=== PATIENT | male | born 1985 | race Caucasian/White ===

== ENCOUNTER 2017-03-04 12:43 | Emergency (ER) | payer MEDICARE, OTHER ==
--- NOTE | ~2017-03-04 | US115 ---
[facility] A Service of [facility] RADIOLOGY TEXT RESULTS PATIENT: LOUISE LOZOYA LOCATION: CFTX : 87 UNIT #: [id number] AGE: [address]: Ayesha Michaels APRN SEX: M ORDER DR: [id number] [facility] [address] [place], [place] [address] [id number] MR#: [id number] Acc #: [id number] NAME: LOUISE LOZOYA : 1985 SEX: M STUDY DATE/TIME: 03/04/2017 14:01 UNIT: CFTX ROOM: STUDY DESCRIPTION: US Scrotum and Contents Attending Physician: Ayesha Michaels A.P.R.N. Ordering Physician: Ed Josh Donis M.D. Primary Care Physician: Primary Care Physician No MEDICAL IMAGING REPORT This report is preliminary unless electronic signature is present EXAM Testicular ultrasound HISTORY Testicular pain and swelling for 3 months. FINDINGS Ultrasound examination of the scrotum testes was performed with molina-scale and Doppler. There is a lobulated heterogeneous, primarily hypoechoic mass occupying nearly the entire right testicle with associated moderate right testicular enlargement. There is preservation of blood flow to the right testicle. 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 Urologic consultation is recommended. The left testicle is normal. Normal blood flow to the left testicle. No epididymal mass or enlargement. IMPRESSION 1. Lobulated heterogeneous, primarily hypoechoic mass occupying nearly the entire right testicle with associated moderate right testicular enlargement. 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 Urologic consultation is recommended. 2. Blood flow is noted in both testes. 3. The left testicle is normal. 4. Small bilateral hydroceles. Dictated by... Carlos Zepeda M.D. THIS IS AN ELECTRONICALLY VERIFIED REPORT [facility] A Service of [facility] RADIOLOGY TEXT RESULTS PATIENT: LOUISE LOZOYA LOCATION: CFTX : [birth year] UNIT #: [id number] AGE: [address]: Ayesha Michaels APRN SEX: M ORDER DR: Carlos Zepeda M.D. at 03/04/2017 11:49 PM DFL/to TD: 03/04/2017 16:17 JOB #: [id number] MEDICAL IMAGING REPORT Page 1 of 1 COPY
[~2017-03-04 12:43] MED LIST: ACYCLOVIR400 MG PO; AFRIN3 ML; ALBUTEROL17 G1 IH; AMOXICILLIN; ATARAX PO; AUGMENTIN PO; BROMFED DM COU118 ML PO; FLEXERIL10 M1 PO; IBUPROFEN PO; NO MEDICATIONS; PENICILLIN V P500 MG PO; PERMETHRIN60 GM TP; TESSALON200 MG PO; VICODIN 5/1 TAB 5/50 PO; VOLTAREN75 MG PO; ZITHROMAX1 G/PKT PO
[2017-03-04 14:51] LABS: URINE SOURCE CLEAN CATCH
[2017-03-04 14:57] LABS: URINE APPEARANCE CLEAR; URINE BILIRUBIN NEG (NEG); URINE BLOOD NEG (NEG); URINE COLOR YELLOW; URINE GLUCOSE NEG (NEG); URINE KETONE NEG (NEG); URINE LEUKOCYTE ESTERASE NEG (NEG); URINE NITRATE NEG (NEG); URINE PH 7.5 (5-8); URINE PROTEIN NEG (NEG)
[2017-03-04 15:19] LABS: URINE TRICHOMONAS NEGATIVE
[2017-03-04 15:20] LABS: CULTURE INDICATED? NO
[2017-03-07 02:38] LABS: CHLAMYDIA TRACH Not Detected (Not Detected); N GONOR Not Detected (Not Detected)
[2017-03-13] MEDS ORDERED: PERCOCET 5/321 UDTAB PO (14:10)
== END 2017-03-04 15:09 | disposition home or self-care (01) ==
LOC: CFTX 12:43 → CED 12:43 → CFTX 13:23
PROVIDERS: Nurse Practitioner
DX: N50.89 Other specified disorders of the male genital organs (principal); I10 Essential (primary) hypertension; F17.210 Nicotine dependence, cigarettes, uncomplicated
CPT/HCPCS: 76870; 81003; 87491; 87591; 93976; 99284

== ENCOUNTER → 2017-03-15 | Day surgery (SDC) | payer MEDICARE, OTHER ==
[~2017-03-15] MED LIST changes: +PERCOCET 5/321 UDTAB PO
--- NOTE | ~2017-03-15 | OR ---
Unit #: [id number] #: [id number] Patient: LOUISE LOZOYA [id number] [facility]. [place], [place] [address] [id number] MR#: [id number] NAME: LOUISE LOZOYA ROOM: Date of Procedure: 03/15/2017 Admission Date: 03/15/2017 Surgeon: Calvin Brito M.D. : 1985 Attending Physician: Calvin Brito M.D. Primary Care Physician: Primary Care Physician No OPERATIVE REPORT PREOPERATIVE DIAGNOSIS Large right testicular mass. POSTOPERATIVE DIAGNOSIS Large right testicular mass. PROCEDURE PERFORMED Radical right inguinal orchiectomy. ANESTHESIA General with local supplementation. INDICATIONS FOR PROCEDURE This 31-year-old man who has a 2 to 3 week history of enlarging painful right testicular mass. Examination is consistent with a testicular tumor. Markers were sent out and/or not yet resulted. DESCRIPTION OF PROCEDURE The patient was given preoperative antibiotics and satisfactory general anesthesia, supine. The right groin was clipped. Then widely prepped and draped. A modest oblique right inguinal incision was sharply made and taken down through the extensive fat to the external oblique aponeurosis and external ring, which was broadly exposed. The ilioinguinal nerve was identified early and retracted laterally. The cord was encircled bluntly with [place] drain and strangulated with a [place] tourniquet. Retraction was then shifted to allow traction up of the testicle into the wound and it was very easily brought up. Several fibrovascular attachments were divided with cautery, but with suture ligature on the patient's side. The gubernaculum itself was divided completely with cautery containing no significant vessels. With the testicle freed up, retraction was shifted cephalad and the canal, which had been initially incised with Metzenbaum for about an inch and a half was followed up with separation of the cremaster with Kittner and cautery revealing the vessels and vas at the abdominal level. The peritoneum was fairly adherent, but reflected off. The vas was medially and divided with silk suture ligature. The vessels were taken with preliminary silk tie followed by suture ligature and the stump retracted well into the abdominal cavity. There was complete hemostasis throughout the procedure. The roof of the canal was closed with a running Vicryl again preserving the nerve. The wound was then copiously irrigated and noted to be completely hemostatic. The Preston was closed with interrupted Vicryl and second fatty fibrous layer was closed near the skin and the skin was closed with a 4-0 running Unit #: [id number] #: [id number] Patient: LOUISE LOZOYA subcuticular Monocryl. Local 30 mL of 0.5% Marcaine injected and Dermabond applied. The testicle was taken by me to Pathology and examined preliminarily. Dictated by... Joon Hinds/danette TD: 03/16/2017 05:36 JOB #: [id number] CC: Josiah Dai M.D. OPERATIVE REPORT Page 1 of 1 X Calvin Brito MD X PROCEDURE OPERATIVE NOTE
== END | disposition home or self-care (01) ==
LOC: CSUR 08:26
DX: C62.91 Malignant neoplasm of right testis, unspecified whether descended or undescended (principal); N50.0 Atrophy of testis; N50.89 Other specified disorders of the male genital organs; F17.210 Nicotine dependence, cigarettes, uncomplicated; E66.9 Obesity, unspecified; Z68.32 Body mass index [BMI] 32.0-32.9, adult; Z88.8 Allergy status to other drugs, medicaments and biological substances; Z98.890 Other specified postprocedural states
CPT/HCPCS: 88309; 88341; 88342; J0690; J1170; J2250; J2405; J3010